=== PATIENT | female | born 1990 | race Caucasian/White ===

== ENCOUNTER 2016-11-02 10:45 | Emergency (ER) | payer SELFPAY ==
[~2016-11-02] VITALS: Wt 61.4 kg
[2016-11-02 11:14] LABS: URINE BLOOD (Dip) POC Trace-intact (NEGATIVE)
[2016-11-02] MEDS ORDERED: CEPHALEXIN 500 MG CAP PO ONE (11:30)
[2016-11-02] MEDS ORDERED: PHENAZOPYRIDINE 100 MG TAB PO ONE (11:30)
[2016-11-02] MEDS ORDERED: IBUPROFEN 600 MG TAB PO ONE (11:30)
--- NOTE | 2016-11-02 12:45 | ERD ---
ER Documentation Chief Complaint Date/Time DATE: 11/02/16 TIME: 12:42 Chief Complaint states "uti" HPI 76-year-old female presents with urinary frequency and urgency for last 2 days. Feels nauseous but no active vomiting. She denies flank pain. She has some suprapubic pain denies any right or left lower quadrant pain. She denies fevers. She has a history of remote UTI and feels similar to previous. She did some research on the Internet and says it may be from being in a hot tub this weekend. ROS All systems reviewed and are negative except as per history of present illness. Medications Home Meds No Active Prescriptions or Reported Meds Allergies Allergies: Coded Allergies: Nut Flavor (Verified Allergy, Severe, 02/27/11) PMhx/Soc History of Surgery: No Anesthesia Reaction: No Hx Neurological Disorder: No Hx Respiratory Disorders: Yes (ASTHMA) Hx Cardiac Disorders: Yes (HEART MURMUR) Hx Psychiatric Problems: No Hx Miscellaneous Medical Probl: Yes (THYROID PROBLEM) Hx Alcohol Use: Yes Hx Substance Use: No Hx Tobacco Use: No Smoking Status: Never smoker Physical Exam Vitals Vital Signs Date Time Temp Pulse Resp B/P Pulse Ox O2 Delivery O2 Flow Rate FiO2 11/02/16 10:50 98.3 84 20 136/85 96 Physical Exam Const: [] Alert, [id number] per Head: Atraumatic Eyes: Normal Conjunctiva ENT: Normal External Ears, Nose and Mouth. Neck: Full range of motion..~ No meningismus. Resp: Clear to auscultation bilaterally Cardio: Regular rate and rhythm, no murmurs Abd: Soft, minimal suprapubic tenderness. No rebound no tenderness at McBurney's point no masses, non distended. Normal bowel sounds Skin: No petechiae or rashes Back: No midline or flank tenderness Ext: No cyanosis, or edema Neur: Awake and alert Psych: Normal Mood and Affect Results 24 hrs Laboratory Tests Test 11/02/16 11:14 Bedside Urine pH (LAB) 6.0 Bedside Urine Protein (LAB) 1+ Bedside Urine Glucose (UA) Negative Bedside Urine Ketones (LAB) Negative Bedside Urine Blood Trace-intact Bedside Urine Nitrite (LAB) Negative Bedside Urine Leukocyte Esterase (L 1+ Current Medications Medications (Trade) Dose Ordered Sig/Yoni Route PRN Reason Start Time Stop Time Status Last Admin Dose Admin Cephalexin (Keflex) 500 mg ONCE ONCE PO 11/02/16 11:30 11/02/16 11:33 DC Phenazopyridine HCl (Pyridium) 200 mg ONCE ONCE PO 11/02/16 11:30 11/02/16 11:33 DC Ibuprofen (Motrin) 600 mg ONCE ONCE PO 11/02/16 11:30 11/02/16 11:33 DC Procedures/MDM Urine was ordered. Urine shows positive leukocytes and hemoglobin. HCG is negative. An order was made for Keflex and Pyridium and ibuprofen but patient was nowhere to be found after providing a urine sample. Patient was noted to be found despite good ashanti effort to locate. Patient was subsequently marked as eloped. Patient was amatory [id number] on last exam. Departure Diagnosis: Primary Impression: Dysuria Condition: Stable KATELYN RIZO MD Nov 02, 2016 12:44
== END 2016-11-02 11:52 | disposition left against medical advice (07) ==
LOC: FTE 10:45
DX: R30.0 Dysuria (principal); J45.909 Unspecified asthma, uncomplicated
CPT/HCPCS: 81003; 99282